=== PATIENT | female | born 1950 | race Caucasian/White ===

== ENCOUNTER 2016-07-28 22:36 | Inpatient (IN) | payer OTHER ==
[~2016-07-28] VITALS: Ht 152.4 cm; Wt 63.5 kg
[2016-07-28 22:43] VITALS: BP 148/67; PULSE 99; RESP 16; TEMP 98.5; O2SAT 97
[2016-07-28] MEDS ORDERED: NACL 0.9% 1,000 ML IV ONE (23:34)
[2016-07-28 23:57] LABS: BASOPHILS % (AUTO) 0.4 % (0.0-2.0); EOSINOPHILS # (AUTO) 0.1 K/uL (0.0-0.4); EOSINOPHILS % (AUTO) 1.1 % (0.0-4.0); HEMATOCRIT 38.9 % (36-48); HEMOGLOBIN 13.2 g/dL (12.0-16.0); LYMPHOCYTES # (AUTO) 1.9 K/uL (1.0-5.5); LYMPHOCYTES % (AUTO) 23.6 % (20.5-51.5); MEAN CORPUSCULAR HEMOGLOBIN 33 pg (27-31); MEAN CORPUSCULAR HGB CONC 34 % (32-36); MEAN CORPUSCULAR VOLUME 98 fL (79.0-98.0); MONOCYTES # (AUTO) 0.6 K/uL (0.0-1.0); MONOCYTES % (AUTO) 7.3 % (1.7-9.3); NEUTROPHILS # (AUTO) 5.7 K/uL (1.8-7.7); NEUTROPHILS % (AUTO) 67.6 % (40.0-70.0); PLATELET COUNT (AUTO) 258 K/uL (130-430); RED BLOOD CELL COUNT(AUTO) 3.97 MIL/uL (4.2-6.2); RED CELL DISTRIBUTION WIDTH 12.3 % (9.0-15.0); WHITE BLOOD COUNT (AUTO) 8.3 K/uL (4.8-10.8)
[2016-07-29] VITALS (7 sets, daily range): BP systolic 143–176; BP diastolic 67–83; PULSE 91–124; RESP 17–21; TEMP 97.6–98.9; O2SAT 94–99
[2016-07-29] MEDS ORDERED: MORPHINE 2 MG/ML INJ. SYRINGE IVP ONE
[2016-07-29] MEDS ORDERED: DIPHENHYDRAMINE INJ 50 MG/ML VIAL IVP ONE
[2016-07-29 00:03] LABS: CALCIUM 9.4 mg/dL (8.4-11.0); CREATININE 0.86 mg/dL (0.55-1.30); POTASSIUM 3.6 mmol/L (3.5-5.1)
[2016-07-29 00:09] LABS: INR 0.9 (0.8-1.2); PROTHROMBIN TIME 10.1 SECS (9.5-12.5)
[2016-07-29 00:10] LABS: TOTAL BILIRUBIN 0.3 mg/dL (0.0-1.0); TOTAL PROTEIN, SERUM 7.2 g/dL (6.4-8.3)
[2016-07-29 00:11] LABS: ALBUMIN 3.3 g/dL (3.4-4.8)
[2016-07-29] MEDS ORDERED: MORPHINE 2 MG/ML INJ. SYRINGE IVP PRN (00:15)
[2016-07-29] MEDS: D5NS 1,000 ML IV SCH ×2 (01:01→14:10)
[2016-07-29] MEDS: ZOLPIDEM TARTRATE 5 MG TABLET PO PRN (01:07)
[2016-07-29 01:29] LABS: BILIRUBIN,URINE NEGATIVE (NEGATIVE); CLARITY/URINE CLEAR (CLEAR); COLOR,URINE YELLOW (YELLOW); GLUCOSE,URINE NEGATIVE (NEGATIVE); KETONES,URINE TRACE (NEGATIVE); LEUKOCYTE ESTERASE ,URINE NEGATIVE (NEGATIVE); NITRITE, URINE NEGATIVE (NEGATIVE); PROTEIN URINE NEGATIVE (NEGATIVE); UROBILINOGEN,URINE 0.2 (0.2-1.0)
[2016-07-29 01:41] LABS: BLOOD, URINE TRACE (NEGATIVE)
[2016-07-29 01:42] LABS: RBC,URINE 0-3 /HPF (0-3)
[2016-07-29 01:43] LABS: BACTERIA,URINE FEW /HPF (None Seen); MUCUS,URINE None Seen /LPF (None Seen)
[2016-07-29] MEDS ORDERED: ONDANSETRON HCL 4 MG/2 ML VIAL IVP PRN ×2 (03:15→10:30)
[2016-07-29] MEDS: MORPHINE 4 MG/ML INJ. SYRINGE IVP PRN ×2 (03:29→08:26)
[2016-07-29] MEDS ORDERED: LOSA100T11 PO (07:58)
[2016-07-29] MEDS: LORazepam 2 MG/ML VIAL IVP PRN ×2 (10:28→17:07)
[2016-07-29] MEDS ORDERED: DOCUSATE SODIUM 100 MG CAPSULE PO PRN (10:30)
[2016-07-29] MEDS ORDERED: ZOLPIDEM TARTRATE 5 MG TABLET PO PRN (10:30)
[2016-07-29] MEDS ORDERED: ACETAMINOPHEN 325 MG TABLET PO PRN (10:30)
[2016-07-29] MEDS ORDERED: POTASSIUM CHLORIDE 10 MEQ TAB.PRT.SR PO PRN (10:30)
[2016-07-29] MEDS ORDERED: MAGNESIUM SULFATE 50 ML IV PRN (10:30)
[2016-07-29] MEDS: cloNIDine HCL 0.1 MG TABLET PO PRN ×2 (10:31→16:49)
[2016-07-29] MEDS: MORPHINE 2 MG/ML INJ. SYRINGE IVP PRN (14:40)
[2016-07-29] MEDS: HYDROmorphone 2 MG/ML VIAL IVP PRN (21:30)
[2016-07-30] VITALS (17 sets, daily range): BP systolic 144–191; BP diastolic 46–91; PULSE 88–111; RESP 16–20; TEMP 97.4–98.7; O2SAT 94–99
[2016-07-30] MEDS: D5NS 1,000 ML IV SCH (02:48)
[2016-07-30] MEDS: HYDROmorphone 2 MG/ML VIAL IVP PRN ×2 (02:50→20:15)
[2016-07-30 07:06] LABS: BASOPHILS % (AUTO) 0.4 % (0.0-2.0); EOSINOPHILS # (AUTO) 0.1 K/uL (0.0-0.4); EOSINOPHILS % (AUTO) 1.2 % (0.0-4.0); HEMATOCRIT 32.4 % (36-48); LYMPHOCYTES # (AUTO) 2.1 K/uL (1.0-5.5); LYMPHOCYTES % (AUTO) 25.7 % (20.5-51.5); MEAN CORPUSCULAR HEMOGLOBIN 33 pg (27-31); MEAN CORPUSCULAR HGB CONC 34 % (32-36); MEAN CORPUSCULAR VOLUME 98 fL (79.0-98.0); MONOCYTES # (AUTO) 0.8 K/uL (0.0-1.0); MONOCYTES % (AUTO) 9.9 % (1.7-9.3); NEUTROPHILS % (AUTO) 62.8 % (40.0-70.0); PLATELET COUNT (AUTO) 184 K/uL (130-430); RED CELL DISTRIBUTION WIDTH 12.4 % (9.0-15.0)
[2016-07-30 07:32] LABS: CALCIUM 8.1 mg/dL (8.4-11.0); CREATININE 0.37 mg/dL (0.55-1.30); POTASSIUM 3.3 mmol/L (3.5-5.1)
[2016-07-30] MEDS: LOSARTAN POTASSIUM 50 MG TABLET (COZAAR) PO SCH (09:00)
[2016-07-30] MEDS ORDERED: POTASSIUM CHLORIDE 40 MEQ, LIDOCAINE JECT 2% PF 100 MG 50 MG in NS 250 ML IV ONE (10:15)
[2016-07-30] MEDS ORDERED: PROPOFOL 200MG/ 20ML VIAL (DIPRIVAN) IV ONE (14:00)
[2016-07-30] MEDS ORDERED: MIDAZOLAM HCL 5 MG/5 ML VIAL ONE (14:00)
[2016-07-30] MEDS ORDERED: NEOSTIGMINE METHYLSULFATE 1 MG/ML, 10 ML VIAL ONE (14:00)
[2016-07-30] MEDS ORDERED: fentaNYL CITRATE 250 MCG/5 ML AMP ONE (14:00)
[2016-07-30] MEDS ORDERED: ROCURONIUM BROMIDE 10 MG/ML (ZEMURON) ONE (14:00)
[2016-07-30] MEDS ORDERED: GLYCOPYRROLATE 0.2 MG/ML VIAL ONE (14:00)
[2016-07-30] MEDS ORDERED: KETOROLAC TROMETHAMINE 30 MG VIAL ONE (14:00)
[2016-07-30] MEDS ORDERED: LR 1,000 ML IV.SOLN IV ONE (14:00)
[2016-07-30] MEDS ORDERED: ceFAZolin SODIUM 1 GM VIAL ONE (14:00)
[2016-07-30] MEDS ORDERED: SEVOFLURANE 15 MIN GAS INH ONE (14:00)
[2016-07-30] MEDS ORDERED: POLYMYXIN 500,000/BACIT.10,000 UNITS in NS IRR 1 L IR ONE (14:47)
[2016-07-30] MEDS ORDERED: LR 1,000 ML IV SCH (15:00)
[2016-07-30] MEDS ORDERED: HYDROmorphone 2 MG/ML VIAL IVP PRN (15:00)
[2016-07-30] MEDS ORDERED: HYDROmorphone 1 MG INJ. 1 MG/ML AMPUL IVP PRN ×2 (15:00)
[2016-07-30] MEDS ORDERED: METOCLOPRAMIDE HCL 10 MG/2 ML VIAL IVP PRN (15:00)
[2016-07-30] MEDS ORDERED: ONDANSETRON HCL 4 MG/2 ML VIAL IVP PRN (16:00)
[2016-07-30] MEDS ORDERED: DIPHENHYDRAMINE INJ 50 MG/ML VIAL IVP PRN (16:00)
[2016-07-30] MEDS ORDERED: DIPHENHYDRAMINE HCL 25 MG CAPSULE PO PRN (16:00)
[2016-07-30] MEDS ORDERED: ACETAMINOPHEN 500 MG TABLET PO PRN (16:00)
[2016-07-30] MEDS ORDERED: MILK OF MAGNESIA 30 ML UDC PO PRN (16:00)
[2016-07-30] MEDS: D5/0.45 NS 1,000 ML IV SCH ×2 (17:04→23:46)
[2016-07-30] MEDS: KETOROLAC TROMETHAMINE 15 MG VIAL IVP SCH (17:55)
[2016-07-30] MEDS: SENNOSIDES 8.6 MG TABLET PO SCH (23:02)
[2016-07-31] VITALS (7 sets, daily range): BP systolic 133–158; BP diastolic 66–83; PULSE 84–107; RESP 18–20; TEMP 97.1–98.8; O2SAT 94–99
[2016-07-31] MEDS: KETOROLAC TROMETHAMINE 15 MG VIAL IVP SCH ×2 (00:29→05:50)
[2016-07-31] MEDS: ZOLPIDEM TARTRATE 5 MG TABLET PO PRN ×2 (00:37→21:14)
[2016-07-31] MEDS: D5/0.45 NS 1,000 ML IV SCH (03:54)
[2016-07-31 07:29] LABS: BASOPHILS % (AUTO) 0.3 % (0.0-2.0); EOSINOPHILS # (AUTO) 0.1 K/uL (0.0-0.4); EOSINOPHILS % (AUTO) 1.1 % (0.0-4.0); HEMATOCRIT 30.3 % (36-48); HEMOGLOBIN 10.2 g/dL (12.0-16.0); LYMPHOCYTES # (AUTO) 1.2 K/uL (1.0-5.5); LYMPHOCYTES % (AUTO) 15.6 % (20.5-51.5); MEAN CORPUSCULAR HEMOGLOBIN 33 pg (27-31); MEAN CORPUSCULAR HGB CONC 34 % (32-36); MEAN CORPUSCULAR VOLUME 98 fL (79.0-98.0); MONOCYTES # (AUTO) 0.7 K/uL (0.0-1.0); MONOCYTES % (AUTO) 9.8 % (1.7-9.3); NEUTROPHILS # (AUTO) 5.6 K/uL (1.8-7.7); NEUTROPHILS % (AUTO) 73.2 % (40.0-70.0); PLATELET COUNT (AUTO) 164 K/uL (130-430); RED BLOOD CELL COUNT(AUTO) 3.08 MIL/uL (4.2-6.2); RED CELL DISTRIBUTION WIDTH 12.2 % (9.0-15.0); WHITE BLOOD COUNT (AUTO) 7.6 K/uL (4.8-10.8)
[2016-07-31 08:14] LABS: CALCIUM 8.4 mg/dL (8.4-11.0); CREATININE 0.39 mg/dL (0.55-1.30); POTASSIUM 3.3 mmol/L (3.5-5.1)
[2016-07-31] MEDS ORDERED: traMADol HCL HCL 50 MG TABLET (ULTRAM) PO PRN (08:15)
[2016-07-31] MEDS: HYDROmorphone 2 MG/ML VIAL IVP PRN (08:59)
[2016-07-31] MEDS: PANTOPRAZOLE SODIUM 40 MG TAB PO SCH (09:31)
[2016-07-31] MEDS: MULTIVITAMINS TAB 1 TABLET PO SCH (09:31)
[2016-07-31] MEDS: ENOXAPARIN SODIUM 40 MG/0.4 ML SYRINGE SUBCUT SCH (09:31)
[2016-07-31] MEDS: ASCORBIC ACID 500 MG TABLET PO SCH ×2 (09:32→21:13)
[2016-07-31] MEDS: LOSARTAN POTASSIUM 50 MG TABLET (COZAAR) PO SCH (09:32)
[2016-07-31] MEDS: traMADol HCL HCL 50 MG TABLET (ULTRAM) PO PRN (15:56)
[2016-07-31] MEDS: D5NS 1,000 ML IV SCH (18:02)
[2016-07-31] MEDS: MORPHINE 2 MG/ML INJ. SYRINGE IVP PRN ×2 (18:03→23:05)
[2016-07-31] MEDS: SENNOSIDES 8.6 MG TABLET PO SCH (21:13)
[2016-07-31] MEDS: METOPROLOL TARTRATE 25 MG TABLET PO SCH (21:14)
[2016-08-01] MEDS: D5NS 1,000 ML IV SCH ×3 (01:16→15:45)
[2016-08-01 04:00] VITALS: BP 147/69; PULSE 96; RESP 18; TEMP 97.6; O2SAT 96
[2016-08-01 06:54] LABS: BASOPHILS % (AUTO) 0.5 % (0.0-2.0); EOSINOPHILS # (AUTO) 0.1 K/uL (0.0-0.4); EOSINOPHILS % (AUTO) 1.8 % (0.0-4.0); HEMATOCRIT 28.9 % (36-48); HEMOGLOBIN 9.6 g/dL (12.0-16.0); LYMPHOCYTES # (AUTO) 1.3 K/uL (1.0-5.5); LYMPHOCYTES % (AUTO) 17.7 % (20.5-51.5); MEAN CORPUSCULAR HEMOGLOBIN 33 pg (27-31); MEAN CORPUSCULAR HGB CONC 33 % (32-36); MEAN CORPUSCULAR VOLUME 98 fL (79.0-98.0); MONOCYTES # (AUTO) 0.9 K/uL (0.0-1.0); MONOCYTES % (AUTO) 12.4 % (1.7-9.3); NEUTROPHILS # (AUTO) 4.8 K/uL (1.8-7.7); NEUTROPHILS % (AUTO) 67.6 % (40.0-70.0); PLATELET COUNT (AUTO) 183 K/uL (130-430); RED BLOOD CELL COUNT(AUTO) 2.96 MIL/uL (4.2-6.2); RED CELL DISTRIBUTION WIDTH 12.2 % (9.0-15.0); WHITE BLOOD COUNT (AUTO) 7.1 K/uL (4.8-10.8)
[2016-08-01 07:45] VITALS: BP 156/67; PULSE 96; RESP 18; TEMP 97.2; O2SAT 97
[2016-08-01] MEDS: MORPHINE 2 MG/ML INJ. SYRINGE IVP PRN ×4 (08:56→21:26)
[2016-08-01] MEDS: PANTOPRAZOLE SODIUM 40 MG TAB PO SCH (08:57)
[2016-08-01] MEDS: LOSARTAN POTASSIUM 50 MG TABLET (COZAAR) PO SCH (08:57)
[2016-08-01] MEDS: ASCORBIC ACID 500 MG TABLET PO SCH ×2 (08:57→20:59)
[2016-08-01] MEDS: MULTIVITAMINS TAB 1 TABLET PO SCH (08:57)
[2016-08-01] MEDS: METOPROLOL TARTRATE 25 MG TABLET PO SCH ×2 (08:57→20:58)
[2016-08-01] MEDS: ENOXAPARIN SODIUM 40 MG/0.4 ML SYRINGE SUBCUT SCH ×3 (08:58→17:12)
[2016-08-01 10:06] LABS: CALCIUM 8.4 mg/dL (8.4-11.0); CREATININE 0.45 mg/dL (0.55-1.30); POTASSIUM 3.8 mmol/L (3.5-5.1)
[2016-08-01 12:08] VITALS: BP 170/82; PULSE 77; RESP 18; TEMP 98.5; O2SAT 95
[2016-08-01 16:20] VITALS: BP 153/76; PULSE 95; RESP 18; TEMP 99.4; O2SAT 96
[2016-08-01 19:00] VITALS: BP 128/74; PULSE 91; RESP 16; TEMP 97.4; O2SAT 96
[2016-08-01 20:00] VITALS: BP 128/74; PULSE 91; RESP 16; TEMP 97.4; O2SAT 96
[2016-08-01] MEDS: SENNOSIDES 8.6 MG TABLET PO SCH (20:59)
[2016-08-01] MEDS: ZOLPIDEM TARTRATE 5 MG TABLET PO PRN (21:22)
[2016-08-02 00:53] VITALS: BP 154/86; PULSE 89; RESP 18; TEMP 97.4; O2SAT 96
[2016-08-02] MEDS: MORPHINE 2 MG/ML INJ. SYRINGE IVP PRN ×2 (01:38→09:18)
[2016-08-02] MEDS: D5NS 1,000 ML IV SCH ×2 (01:45→05:40)
[2016-08-02 06:08] VITALS: BP 164/87; PULSE 100; RESP 16; TEMP 98.6; O2SAT 96
[2016-08-02 06:46] LABS: BASOPHILS % (AUTO) 0.3 % (0.0-2.0); EOSINOPHILS # (AUTO) 0.1 K/uL (0.0-0.4); EOSINOPHILS % (AUTO) 1.5 % (0.0-4.0); HEMATOCRIT 29.1 % (36-48); HEMOGLOBIN 9.9 g/dL (12.0-16.0); LYMPHOCYTES # (AUTO) 1.6 K/uL (1.0-5.5); LYMPHOCYTES % (AUTO) 23.7 % (20.5-51.5); MEAN CORPUSCULAR HEMOGLOBIN 33 pg (27-31); MEAN CORPUSCULAR HGB CONC 34 % (32-36); MEAN CORPUSCULAR VOLUME 97 fL (79.0-98.0); MONOCYTES # (AUTO) 0.9 K/uL (0.0-1.0); MONOCYTES % (AUTO) 13.3 % (1.7-9.3); NEUTROPHILS # (AUTO) 4.2 K/uL (1.8-7.7); NEUTROPHILS % (AUTO) 61.2 % (40.0-70.0); PLATELET COUNT (AUTO) 214 K/uL (130-430); RED BLOOD CELL COUNT(AUTO) 2.99 MIL/uL (4.2-6.2); RED CELL DISTRIBUTION WIDTH 12.2 % (9.0-15.0); WHITE BLOOD COUNT (AUTO) 6.8 K/uL (4.8-10.8)
[2016-08-02 09:52] VITALS: BP 147/65; PULSE 104; RESP 20; TEMP 98.6; O2SAT 99
[2016-08-02] MEDS: ASCORBIC ACID 500 MG TABLET PO SCH (10:11)
[2016-08-02] MEDS: MULTIVITAMINS TAB 1 TABLET PO SCH (10:11)
[2016-08-02] MEDS: LOSARTAN POTASSIUM 50 MG TABLET (COZAAR) PO SCH (10:11)
[2016-08-02] MEDS: PANTOPRAZOLE SODIUM 40 MG TAB PO SCH (10:12)
[2016-08-02] MEDS: ENOXAPARIN SODIUM 40 MG/0.4 ML SYRINGE SUBCUT SCH (10:12)
[2016-08-02] MEDS: METOPROLOL TARTRATE 25 MG TABLET PO SCH (10:12)
[2016-08-02 12:21] VITALS: BP 119/70; PULSE 97; RESP 16; TEMP 96.1; O2SAT 97
[2016-08-02] MEDS: traMADol HCL HCL 50 MG TABLET (ULTRAM) PO PRN (14:52)
[2016-08-02 16:33] VITALS: PULSE 91; RESP 20; TEMP 98; O2SAT 95
[2016-08-02 16:49] VITALS: BP 172/81; PULSE 91; RESP 20; TEMP 98; O2SAT 98
== END 2016-08-02 17:43 | DRG 482 ==
LOC: SED 22:36 → SMU 07-29 00:09
PROVIDERS: ADMIT General Practice; ATTEND General Practice
PROC: 0QS604Z Reposition Right Upper Femur with Internal Fixation Device, Open Approach (ICD-10-PCS; principal; 2016-07-29)
DX: S72.141A Displaced intertrochanteric fracture of right femur, initial encounter for closed fracture (principal); I10 Essential (primary) hypertension; E87.6 Hypokalemia; F41.1 Generalized anxiety disorder; W18.39XA Other fall on same level, initial encounter; Y92.098 Other place in other non-institutional residence as the place of occurrence of the external cause
CPT/HCPCS: 36415; 71010; 72170-TC; 76000; 80048; 80053; 81000-TC; 83735-TC; 85025; 85610-TC; 85730-TC; 86886; 86900; 86901; 86920; 87081; 93005; 94010; 94760; 96374; 96375; 97110-GP; 97116-GP; 97530-GP; 99285; C1713; C1769; J0690; J1170; J1200; J1650; J1885; J2060; J2250; J2270; J2405; J2704; J2710; J3010; J3480; J3490; J7042; J7050; J7120